=== PATIENT | male | born 1955 | race Caucasian/White ===

== ENCOUNTER 2018-10-03 08:55 | Observation (INO) | payer BC ==
[~2018-10-03] VITALS: Ht 188 cm; Wt 98.6 kg
[2018-10-03] VITALS (35 sets, daily range): BP systolic 130–170; BP diastolic 68–91; PULSE 60–102; RESP 11–23; Ht 188 cm; Wt 98.6 kg
[~2018-10-03 08:55] MED LIST: DESFLURANE 15 MIN ONE; GLYCOPYRROLATE 0.4 MG INJ ONE
[2018-10-03] MEDS ORDERED: ATOR20TA38 PO (09:58)
[2018-10-03] MEDS ORDERED: ADAL40PE SQ (09:59)
[2018-10-03] MEDS ORDERED: BUPIVACAINE 0.5%/EPI (SDV) 30 ML INJ ONE (11:15)
[2018-10-03] MEDS ORDERED: GELATIN SIZE 100 SPONGE ONE (11:15)
[2018-10-03] MEDS ORDERED: THROMBIN 5000 UNIT VIAL ONE (11:16)
[2018-10-03] MEDS ORDERED: POLYMYXIN/BACITRACIN 1L IRRIG ONE (11:16)
--- NOTE | 2018-10-03 11:27 | PREAC ---
Date/Time of Note Date/Time of Note DATE: 10/03/18 TIME: 11:25 Anesthesia Eval and Record Evaluation Time Pre-Procedure Interview DATE: 10/03/18 TIME: 11:25 Age 62 Sex male NPO: 8 hrs Preoperative diagnosis L2L3 microdiscectomy Planned procedure L2L3 microdiscectomy and decompression Past Medical History Past Medical History: Includes Cardio: Dyslipidemia Musculoskeletal: Other (sporiasis ) Hepatic: Hepatitis Surgery & Anesthesia Issues No known issue Meds Anticoagulation: No Beta Korey within 24 hr: No Reason Beta Korey not given: Pt. not on B-Korey Reported Medications Adalimumab (Humira) 40 Mg/0.8 Ml Pen.ij.kit, 40 MG SQ EVERY TWO WEEKS 10/03/18 Atorvastatin Calcium* (Atorvastatin Calcium*) 20 Mg Tablet, 20 MG PO QHS, #30 TAB 10/03/18 Meds reviewed: Yes Allergies Coded Allergies: No Known Allergy (Unverified , 10/03/18) Allergies Reviewed: Yes Labs/Studies Labs Reviewed: Reviewed by anesthesiologist test: N/A Pre-procedure Exam Last vitals Vital Signs Date Temp Pulse Resp B/P (MAP) Pulse Ox O2 O2 Flow FiO2 Time Delivery Rate 10/03/18 97.8 68 16 138/85 98 Room Air 09:49 (102) Airway: Adequate mouth opening, Adequate thyromental dist Mallampati: Mallampati IV Teeth: Normal Lung: Normal Heart: Normal ASA Physical Status ASA physical status: 2 Emergency: None Pre-operative Attestations Prior to commencing anesthesia and surgery, the patient was re-evaluated, there was verification of: *The patient's identity *The results of appropriate recent lab work and preoperative vital signs *The above evaluation not changing prior to induction *Anesthetic plan, risk benefits, alternative and complications discussed with patient/family; questions answered; patient/family understands, accepts and wishes to proceed. NELLA ESPINOZA DO Oct 03, 2018 11:27
[2018-10-03] MEDS ORDERED: MEPERIDINE 25 MG INJ IV PRN (11:30)
[2018-10-03] MEDS ORDERED: LABETALOL HCL 20MG INJ IV PRN (11:30)
[2018-10-03] MEDS ORDERED: ONDANSETRON 4 MG INJ IV PRN ×2 (11:30→15:00)
[2018-10-03] MEDS ORDERED: HYDROmorphONE 1 MG/5 ML IV SYRINGE IV PRN ×3 (11:30)
[2018-10-03] MEDS ORDERED: LIDOCAINE 2% (SDV) 5 ML INJ ONE (11:36)
[2018-10-03] MEDS ORDERED: MIDAZOLAM 1 MG/ML 2 ML INJ ONE (11:36)
[2018-10-03] MEDS ORDERED: SUCCINYLCHOLINE CHLORIDE 100 MG/5 ML SYG IV ONE (11:36)
[2018-10-03] MEDS ORDERED: PROPOFOL 20 ML ONE (11:36)
[2018-10-03] MEDS ORDERED: ROCURONIUM 50 MG INJ ONE ×2 (11:46→14:53)
[2018-10-03] MEDS ORDERED: CEFAZOLIN 1 GM INJ ONE (11:46)
[2018-10-03] MEDS ORDERED: ONDANSETRON 4 MG INJ ONE (11:47)
[2018-10-03] MEDS ORDERED: DEXAMETHASONE 4 MG/ML 5 ML INJ ONE (11:47)
[2018-10-03] MEDS ORDERED: HEMOSTATIC MATRIX SYG ZFS ONE ×2 (12:23→13:52)
--- NOTE | 2018-10-03 14:31 | OPR ---
Date/Time of Note Date/Time of Note DATE: 10/03/18 TIME: 14:21 Operative Report Free Text/Dictation DATE OF OPERATION: 10/03/2018 PREOPERATIVE DIAGNOSES: 1. L2-3 biltaeral spinal stenosis with neurogenic claudication 2. L2-3 left paracentral herniated nucleus pulposus with L3 radiculopathy 3. Adult degenerative lumbar scoliosis POSTOPERATIVE DIAGNOSES: 1. L2-3 biltaeral spinal stenosis with neurogenic claudication 2. L2-3 left paracentral herniated nucleus pulposus with L3 radiculopathy 3. Adult degenerative lumbar scoliosis OPERATION PERFORMED: 1. L2-3 bilateral laminectomy, medial facetectomy, and foraminotomyL 2. L2-3 Left sided microdiskectomy SURGEON: Bhavani Ferro MD ANESTHESIA: General endotracheal ESTIMATED BLOOD LOSS: 25 mL SURGICAL INDICATION: The patient is a 62 year-old male who presents with a chronic history of worsening bilateral (left freater than right) lower extremity pain that is exacerbated with walking and relieved with rest and lumbar flexion. The patient was unable to ambulate significant distances secondary to their pain. Risks, benefits, and alternatives to a decompressive procedure including but not exclusive of risks of bleeding, infection, nerve injury, cauda equina syndrome, iatrogenic instability, dural tear, myocardial infarction, stroke, pulmonary embolism were explained to the patient, and he wished to proceed. DESCRIPTION OF TECHNIQUE: The patient was identified in the preoperative area and taken to the operating room. Rapid induction of general endotracheal anesthesia was performed. Patient was given 2 g of cefazolin for prophylaxis. The patient was then placed in the prone position on the Bubba table on top of a Sergio frame with all bony prominences well padded. The back was prepped and draped in usual sterile manner. Using a spinal needle and intraoperative fluoroscopy, the L2-3 level was clearly identified. The skin was injected using 0.25% Marcaine with epinephrine. Longitudinal midline incision was then created using a 10 blade. Further dissection through soft tissue was performed using electrocautery down to the spinous processes bilaterally. Dissection was taken down the bilateral lamina and over the facet joint capsule. A self-retaining retractor was applied. Again, intraoperative fluoroscopy confirmed the level. A rongeur was used to remove a portion of the L2 spinous process and the interspinous ligaments. We identified the interlaminar window. The microscope was brought into use for microdissection. The high-speed bur was used to thin the L2 lamina. Kerrison rongeurs were then used to resect a the lamina, and a portion of the bilateral medial facets and the bone overlying the foramens. Ligamentum flavum was also resected using the Kerrison rongeurs. Care was taken to protect the thecal sac throughout the decompressive procedure. Attention was then placed on the left L2-3 microdiskectomy. A nereve root retractor was placed lateral to the left L3 nerve root. The dura and nereve root were gently retracted medially. The extruded fragment was noted. A 15 blade was used to incise the pseudoannulus. The extruded fragment was identified and the disc material was removed to a stable base. Palpation with a ball-tip probe did not reveal any further stenosis in the central, subarticular, or foraminal areas. The bilateral L2 and L3 pedicles were palpated using a renetta to ensure a pedicle to pedicle decompression. The exiting L2 nerve root and traversing L3 nerve roots were both directly visualized and noted to be decompressed. The cephalad and caudad extent of the decompression were also confirmed using ball- tip probes and intraoperative fluoroscopy. This procedure took 45 minutes longer than usual due to the patient lumbar scoliosis which made the dissection and decompression more difficult because of the patients rotational and coronal deformity. The wound was irrigated copiously using normal saline. Meticulous attention was paid toward hemostasis using bipolar cautery, FloSeal and thrombin. Care was taken to remove all FloSeal prior to wound closure. A medium hemovac was placed. The fascia was then closed using 0 Vicryl in interrupted fashion. Subcutaneous tissue was closed using 2-0 Vicryl in interrupted fashion. Skin was closed using a running 4-0 Monocryl stitch. The wound was dressed using Dermabond, sterile gauze and Tegaderm. The patient was returned to the supine position. They were extubated immediately postoperatively and taken to the recovery room in stable condition. COMPLICATIONS: None. Procedure Date: Oct 03, 2018 Preoperative Diagnosis 1. L2-3 biltaeral spinal stenosis with neurogenic claudication 2. L2-3 left paracentral herniated nucleus pulposus with L3 radiculopathy 3. Adult degenerative lumbar scoliosis Postoperative Diagnosis 1. L2-3 biltaeral spinal stenosis with neurogenic claudication 2. L2-3 left paracentral herniated nucleus pulposus with L3 radiculopathy 3. Adult degenerative lumbar scoliosis Operation/Procedure Performed 1. L2-3 bilateral laminectomy, medial facetectomy, and foraminotomyL 2. L2-3 Left sided microdiskectomy Surgeon see signature line Laboratory Administrative Director ALESSANDRA Feng Anesthesia Type: general Estimated Blood Loss: 10 - 50 ml's Transfusion none Specimen L2-3 disk Grafts/Implants none Complications none Pt Condition Post Procedure: stable Disposition: PACU Procedure Description DESCRIPTION OF TECHNIQUE: The patient was identified in the preoperative area and taken to the operating room. Rapid induction of general endotracheal anesthesia was performed. Patient was given 2 g of cefazolin for prophylaxis. The patient was then placed in the prone position on the Bubba table on top of a Sergio frame with all bony prominences well padded. The back was prepped and draped in usual sterile manner. Using a spinal needle and intraoperative fluoroscopy, the L2-3 level was clearly identified. The skin was injected using 0.25% Marcaine with epinephrine. Longitudinal midline incision was then created using a 10 blade. Further dissection through soft tissue was performed using electrocautery down to the spinous processes bilaterally. Dissection was taken down the bilateral lamina and over the facet joint capsule. A self-retaining retractor was applied. Again, intraoperative fluoroscopy confirmed the level. A rongeur was used to remove a portion of the L2 spinous process and the interspinous ligaments. We identified the interlaminar window. The microscope was brought into use for microdissection. The high-speed bur was used to thin the L2 lamina. Kerrison rongeurs were then used to resect a the lamina, and a portion of the bilateral medial facets and the bone overlying the foramens. Ligamentum flavum was also resected using the Kerrison rongeurs. Care was taken to protect the thecal sac throughout the decompressive procedure. Attention was then placed on the left L2-3 microdiskectomy. A nereve root retractor was placed lateral to the left L3 nerve root. The dura and nereve root were gently retracted medially. The extruded fragment was noted. A 15 blade was used to incise the pseudoannulus. The extruded fragment was identified and the disc material was removed to a stable base. Palpation with a ball-tip probe did not reveal any further stenosis in the central, subarticular, or foraminal areas. The bilateral L2 and L3 pedicles were palpated using a renetta to ensure a pedicle to pedicle decompression. The exiting L2 nerve root and traversing L3 nerve roots were both directly visualized and noted to be decompressed. The c ephalad and caudad extent of the decompression were also confirmed using ball- tip probes and intraoperative fluoroscopy. This procedure took 45 minutes longer than usual due to the patient lumbar scoliosis which made the dissection and decompression more difficult because of the patients rotational and coronal deformity. The wound was irrigated copiously using normal saline. Meticulous attention was paid toward hemostasis using bipolar cautery, FloSeal and thrombin. Care was taken to remove all FloSeal prior to wound closure. A medium hemovac was placed. The fascia was then closed using 0 Vicryl in interrupted fashion. Subcutaneous tissue was closed using 2-0 Vicryl in interrupted fashion. Skin was closed using a running 4-0 Monocryl stitch. The wound was dressed using Dermabond, sterile gauze and Tegaderm. The patient was returned to the supine position. They were extubated immediately postoperatively and taken to the recovery room in stable condition. COMPLICATIONS: None. BHAVANI FERRO MD Oct 03, 2018 14:31
[2018-10-03] MEDS ORDERED: GLYCOPYRROLATE 0.4 MG INJ ONE (14:41)
[2018-10-03] MEDS ORDERED: NEOSTIGMINE 10 MG INJ ONE (14:41)
--- NOTE | 2018-10-03 14:59 | PAC ---
Date/Time of Note Date/Time of Note DATE: 10/03/18 TIME: 14:59 Post-Anesthesia Notes Post-Anesthesia Note Last documented vital signs Vital Signs Date Temp Pulse Resp B/P (MAP) Pulse Ox O2 O2 Flow FiO2 Time Delivery Rate 10/03/18 98 90 16 150/75 98 Room Air 1459 Activity: WNL Respiratory function: WNL Cardiovascular function: WNL Mental status: Baseline Pain reasonably controlled: Yes Hydration appropriate: Yes Nausea/Vomiting absent: Yes NELLA ESPINOZA DO Oct 03, 2018 14:59
[2018-10-03] MEDS ORDERED: PROCHLORPERAZINE 10 MG TAB PO PRN (15:00)
[2018-10-03] MEDS ORDERED: HYDROmorphONE 0.5 MG/0.5 ML SYG IV PRN (15:00)
[2018-10-03] MEDS ORDERED: ACETAMINOPHEN 325 MG TAB PO PRN (15:00)
[2018-10-03] MEDS ORDERED: AL HYDROX/MG HYDROX/SIMETH 30 ML CUP PO PRN (15:00)
[2018-10-03] MEDS ORDERED: NACL 0.9% 3 ML SYG IV SCH (15:00)
[2018-10-03] MEDS ORDERED: NALOXONE (0.4 MG/ML) INJ IV PRN (15:00)
[2018-10-03] MEDS ORDERED: HYDROCODONE/APAP (5/325) TAB PO PRN ×2 (15:00)
[2018-10-03] MEDS: CEFAZOLIN 1 GM/50 ML (PMX) 50 ML IVPB SCH ×2 (15:42→20:19)
[2018-10-03] MEDS ORDERED: hydrALAzine 20 MG INJ ONE (16:19)
[2018-10-03] MEDS ORDERED: hydrALAzine 20 MG INJ IV PRN (16:30)
[2018-10-03] MEDS: SOD CHLORIDE 0.9% 1,000 ML IV SCH (17:23)
--- NOTE | 2018-10-03 17:53 | CONS ---
DATE OF ADMISSION: 10/03/2018 DATE OF CONSULTATION: 10/03/2018 TYPE OF CONSULTATION: Postoperative medical. Thank you very much for allowing me to evaluate this 62-year-old male who just underwent lumbar lynn ectomy. HISTORICAL EVENTS: As you well know in 08/2018 that you evaluated him when he presented with increas ing low back pain and related left leg radicular pain. He has not responded to Medrol Dosepak, anti- inflammatories and physical therapy. It was subsequent due to the same that he underwent MRI imaging that revealed left paracentral disk herniation at L2 to L3 causing an L3 radiculopathy. Because of persistence of his symptoms, he elected to proceed with surgery. Postoperatively in recovery, he is comfortable without cough, wheezing, shortness of breath, nausea, vomiting, abdominal or chest pain, having mild low back pain. PAST MEDICAL HISTORY: Includes: 1. Psoriatic arthritis. 2. Alopecia areata. 3. History of right shoulder repair. 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 Habits: Never smoked, does drink alcohol. FAMILY HISTORY: To be reviewed later. ALLERGIES: NONE. MEDICATIONS PRIOR TO ADMISSION: 1. Atorvastatin 20 mg per day. 2. Humira every 2 weeks. PHYSICAL EXAMINATION: GENERAL: Joanna male, in no acute distress. VITAL SIGNS: BP 118/78, pulse 72, respirations were 18. He was afebrile. HEENT: Eyes: Extraocular muscles were full. Nose, mouth and throat are normal. NECK: Supple. There was no jugular venous distention, thyroid enlargement or adenopathy. LUNGS: Clear. HEART: Rhythm regular. No murmur. No third or fourth sound. ABDOMEN: Nontender. Liver and spleen were not palpable. No mass or tenderness were noted. EXTREMITIES: No edema. Calves are nontender. IMPRESSION: 1. Stable postop lumbar laminectomy. 2. History of psoriatic arthritis. 3. We will evaluate daily for signs and symptoms of thromboembolic disease. 4. Hyperlipidemia. We will continue statin therapy. Dictated By: WAYNE KENNEDY/NTS Conf#: [id number] DID#: [id number] CC: BHAVANI FERRO MD;*EndCC*
[2018-10-03] MEDS ORDERED: CEPASTAT LOZENGE MT PRN (20:30)
[2018-10-03] MEDS ORDERED: ATORVASTATIN 20 MG TAB PO SCH (21:00)
[2018-10-04 00:03] VITALS: BP 114/66; PULSE 88; RESP 18
[2018-10-04] MEDS: CEFAZOLIN 1 GM/50 ML (PMX) 50 ML IVPB SCH ×2 (02:56→09:16)
[2018-10-04 04:26] VITALS: BP 131/74; PULSE 89; RESP 18
[2018-10-04] MEDS: SOD CHLORIDE 0.9% 1,000 ML IV SCH (05:20)
[2018-10-04 07:24] VITALS: BP 123/72; PULSE 78; RESP 19
--- NOTE | 2018-10-04 08:58 | CONS ---
Assessment/Plan Assessment/Plan Assessment/Plan (Daily) 1. Doing well post op lumbar back surgery with much less left leg radic pain 2. Hyperlipidemia, statin was continued 3. Hx psoriatic arthritis 4. Sl inc wbc, received periop steroids, no napoles was placed. Consultation Date/Type/Reason Admit Date/Time Oct 03, 2018 at 15:40 Initial Consult Date Date/Time of Note DATE: 10/04/18 TIME: 08:56 Detailed Summary Respiratory: No cough Cardiovascular: No chest pain, No lightheadedness Gastrointestinal: no complaints Genitourinary: no complaints Musculoskeletal: back pain (mild to mod with much less left leg pain) Exam/Review of Systems Exam Vitals Vital Signs Date Temp Pulse Resp B/P (MAP) Pulse Ox O2 O2 Flow FiO2 Time Delivery Rate 10/04/18 98.2 78 19 123/72 99 07:24 (89) 10/03/18 Nasal 18:45 Cannula Intake and Output 10/03/18 10/03/18 10/04/18 1515:00 23:00 07:00 IntakeIntake Total 2000 ml 320 ml 1160 ml OutputOutput Total 25 ml 585 ml BalanceBalance 1975 ml 320 ml 575 ml Neck: No jvd Respiratory: clear to auscultation Cardiovascular: regular rate and rhythm Gastrointestinal: soft Extremities: No edema, No tenderness Neurological: No focal weakness Results Result Diagram: 10/04/18 0450 10/04/18 0450 Results 24hrs Laboratory Tests Test 10/04/18 04:50 10/04/18 08:53 White Blood Count 13.4 H Red Blood Count 4.17 L Hemoglobin 13.3 L Hematocrit 38.6 L Mean Corpuscular Volume 92.6 Mean Corpuscular Hemoglobin 31.9 Mean Corpuscular Hemoglobin Concent 34.5 Red Cell Distribution Width 12.2 Platelet Count 257 Mean Platelet Volume 8.4 Immature Granulocytes % 0.600 H Neutrophils % 80.0 H Lymphocytes % 11.9 L Monocytes % 7.4 Eosinophils % 0.0 Basophils % 0.1 Nucleated Red Blood Cells % 0.0 Immature Granulocytes # 0.080 H Neutrophils # 10.7 H Lymphocytes # 1.6 Monocytes # 1.0 H Eosinophils # 0.0 Basophils # 0.0 Nucleated Red Blood Cells # 0.0 Sodium Level 141 Potassium Level 4.2 Chloride Level 107 Carbon Dioxide Level 26 Anion Gap 8 Blood Urea Nitrogen 15 Creatinine 0.92 Est Glomerular Filtrat Rate mL/min > 60 Glucose Level 120 Calcium Level 9.4 Lab Scanned Report REFERENCE LAB Medications Medication Current Medications Acetaminophen/ Hydrocodone Bitart (Commodore (5/325)) 1 tab Q4H PRN PO .PAIN 1-5; Start 10/03/18 at 15:00 Acetaminophen/ Hydrocodone Bitart (Commodore (5/325)) 2 tab Q4H PRN PO .PAIN 6-10; Start 10/03/18 at 15:00 Cefazolin Sodium 50 ml @ 100 mls/hr Q6H IVPB Last administered on 10/04/18at 02:56; Admin Dose 100 MLS/HR; Start 10/03/18 at 15:00; Stop 10/04/18 at 09:29 Prochlorperazine (Compazine) 10 mg Q4H PRN PO NAUSEA/VOMITING; Start 10/03/18 at 15:00 Ondansetron HCl (Zofran Inj) 4 mg Q6H PRN IV NAUSEA/VOMITING; Start 10/03/18 at 15:00 Al Hydrox/Mg Hydrox/Simethicone (Mag-Al Plus) 15 ml Q4H PRN PO .CONSTIPATION; Start 10/03/18 at 15:00 Docusate Sodium (Colace) 100 mg BID PO ; Start 10/04/18 at 09:00 Acetaminophen (Tylenol Tab) 650 mg Q4H PRN PO TEMP GREATER THAN 101F OR KIM; Start 10/03/18 at 15:00 IV Flush (NS 3 ml) 3 ml PER PROTOCOL IV ; Start 10/03/18 at 15:00 Naloxone HCl (Narcan) 0.2 mg Q2M PRN IV RR 8 BREATHS/MIN OR LESS; Start 10/03/18 at 15:00 Hydromorphone HCl (Dilaudid) 0.5 mg Q3H PRN IV SEVERE PAIN LEVEL 7-10; Start 10/03/18 at 15:00 Atorvastatin Calcium (Lipitor) 20 mg QHS PO Last administered on 10/03/18at 20:20; Admin Dose 20 MG; Start 10/03/18 at 21:00 Sodium Chloride 1,000 ml @ 80 mls/hr [id number] IV Last administered on 10/04/18at 05:20; Admin Dose 80 MLS/HR; Start 10/03/18 at 17:00 Phenol (Cepastat Lozenge) 1 lozenge Q1H PRN MT sore throat; Start 10/03/18 at 20:30 WAYNE KYLE MD Oct 04, 2018 08:58
[2018-10-04] MEDS ORDERED: DOCUSATE SODIUM 100 MG CAP PO SCH (09:00)
--- NOTE | 2018-10-04 12:12 | PDOCDIS ---
Discharge Instructions CONDITION [id number] Patient Condition: [id number] Good HOME CARE INSTRUCTIONS: [id number] Diet Instructions: [id number] Regular ACTIVITY: [id number] Activity Restrictions: [id number] Avoid heavy lifting [id number] Bathing Restrictions: [id number] Shower FOLLOW UP/APPOINTMENTS Follow-up Plan Follow-up with Dr. Ferro in 2 weeks BHAVANI FERRO MD Oct 04, 2018 12:12
== END 2018-10-04 14:01 | disposition home or self-care (01) ==
LOC: SDS 08:55 → REC 15:40 → MS1 16:50
PROVIDERS: ADMIT Orthopaedic Surgery; ATTEND Orthopaedic Surgery
DX: M48.062 Spinal stenosis, lumbar region with neurogenic claudication (principal); M51.16 Intervertebral disc disorders with radiculopathy, lumbar region; M41.86 Other forms of scoliosis, lumbar region; E78.5 Hyperlipidemia, unspecified
CPT/HCPCS: 63030; 72100; 80048; 85025; 88304; 97116; 97161; 99217; G0378; J0360; J0690; J1100; J1170; J2250; J2405; J2710; J3010; J7030